=== PATIENT | female | born 1985 | race Caucasian/White ===

== ENCOUNTER 2023-07-02 09:54 | Emergency (ER) | payer MEDICAID ==
[~2023-07-02] VITALS: Ht 165.1 cm; Wt 102.1 kg
[2023-07-02] MEDS ORDERED: FLUT16SP16 BNOSTRILS (10:22)
[2023-07-02] MEDS ORDERED: CETI1TAB9 PO (10:22)
[2023-07-02 10:28] VITALS: BP 125/69; O2SAT 95
== END 2023-07-02 10:34 | disposition home or self-care (01) ==
LOC: ER 09:54
DX: R05.9 Cough, unspecified (principal); Z79.899 Other long term (current) drug therapy
CPT/HCPCS: A4663